=== PATIENT | female | born 1990 | race Two or more races ===

== ENCOUNTER 2023-04-14 01:10 | Observation (INO) | payer OTHER ==
[~2023-04-14] VITALS: Ht 165.1 cm; Wt 72.0 kg
[2023-04-14 01:41] LABS: Basophils # (auto) 0.1 10 ^3/uL (0-0.2); Basophils % (auto) 0.3 % (0.0-2.0); Eosinophils # (auto) 0.1 10 ^3/uL (0-0.8); Eosinophils % (auto) 0.7 % (0.0-7.0); Hematocrit 37.4 % (36.0-46.0); Hemoglobin 12.6 g/dL (12.2-16.2); Lymphocytes # (auto) 3.3 10 ^3/uL (0.4-5.4); Lymphocytes % (auto) 20.1 % (10.0-50.0); Mean Corpuscular Hemoglobin 30.7 pg (28.0-32.0); Mean Corpuscular Hgb Conc. 33.6 g/dL (32.0-36.0); Mean Corpuscular Volume 91.5 fL (80.0-100.0); Monocytes # (auto) 1.2 10 ^3/uL (0-1.3); Monocytes % (auto) 7.6 % (0.0-12.0); Neutrophils # (auto) 11.6 10 ^3/uL (1.6-8.6); Neutrophils % (auto) 71.3 % (37.0-80.0); Red Blood Cells 4.09 10^6/uL (4.0-5.20); Red Cell Distribution Width 13.1 % (11.8-14.3); White Blood Cell 16.2 10^3/uL (4.4-10.8)
[2023-04-14 01:58] LABS: Alanine Aminotransferase 20 U/L (7-40); Albumin 3.7 g/dL (3.2-4.8); Alkaline Phosphatase 92 U/L (46-116); Anion Gap 10 (5-15); Aspartate Aminotransferase 20 U/L (13-40); BUN/Creatinine Ratio 16.7 (10.0-20.0); Bilirubin, Total 0.5 mg/dL (0.2-1.0); Blood Urea Nitrogen 11 mg/dL (9-23); Calcium 8.9 mg/dL (8.7-10.4); Carbon Dioxide 22 mmol/L (20-30); Chloride 105 mmol/L (98-107); Glucose 88 mg/dL (74-106); Potassium 3.6 mmol/L (3.5-5.1); Sodium 137 mmol/L (136-145); Total Protein 6.1 g/dL (5.7-8.2)
[2023-04-14 03:59] VITALS: PULSE 85
[2023-04-14] MEDS ORDERED: TERBUTALINE SULFATE 1 MG/ML 1ML VIAL SC ONE (05:19)
[2023-04-14] MEDS: TERBUTALINE SULFATE 1 MG/ML 1ML VIAL SC SCH ×3 (05:24→05:43)
[2023-04-14 06:29] VITALS: BP 117/65; RESP 17; O2SAT 98
[2023-04-14 06:30] LABS: Urine Bacteria FEW /hpf (None Seen); Urine Blood Negative /uL (Negative); Urine Clarity HAZY (Clear); Urine Color Yellow (Yellow); Urine Mucus FEW (None Seen); Urine Protein, UAD TRACE (Negative); Urine Specific Gravity 1.019 (1.001-1.035); Urine Urobilinogen Normal (Negative); Urine WBC 29 /hpf (0 - 5)
[2023-04-14] MEDS ORDERED: PREN-129 OR (07:04)
[2023-04-14] MEDS ORDERED: NIF10C PO (07:04)
[2023-04-14] MEDS ORDERED: NITR-87 PO (07:05)
== END 2023-04-14 07:27 | disposition home or self-care (01) ==
LOC: ER 01:10 → EEVIPCON 01:10 → LDRP 05:42
PROVIDERS: ADMIT Obstetrics & Gynecology; ATTEND Obstetrics & Gynecology
DX: O60.03 Preterm labor without delivery, third trimester (principal); O9A.213 Injury, poisoning and certain other consequences of external causes complicating pregnancy, third trimester; S06.0XAA Concussion with loss of consciousness status unknown, initial encounter; O26.893 Other specified pregnancy related conditions, third trimester; R55 Syncope and collapse; R42 Dizziness and giddiness; W19.XXXA Unspecified fall, initial encounter; Y93.01 Activity, walking, marching and hiking; Y92.89 Other specified places as the place of occurrence of the external cause; Y99.8 Other external cause status
CPT/HCPCS: 36415; 59025; 70450; 76805; 76818; 80053; 81001; 81002; 83880; 84484; 84702; 85025; 93005; 94760; 96360; 96361; 96372; 99285; G0378; J3105

== ENCOUNTER 2023-05-20 14:00 | Observation (INO) | payer OTHER ==
[~2023-05-20] VITALS: Ht 165.1 cm; Wt 78.5 kg
[~2023-05-20 14:00] MED LIST: NIF10C PO; NITR-87 PO; PREN-129 OR
== END 2023-05-20 15:27 | disposition home or self-care (01) ==
LOC: LDRP 14:00
PROVIDERS: ADMIT Obstetrics & Gynecology; ATTEND Obstetrics & Gynecology
DX: O48.0 Post-term pregnancy (principal); Z3A.40 40 weeks gestation of pregnancy
CPT/HCPCS: 59025; 76818; 81002; 94760; G0378

== ENCOUNTER 2023-05-22 05:06 | Observation (INO) | payer OTHER ==
[~2023-05-22] VITALS: Ht 165.1 cm; Wt 78.5 kg
[2023-05-22] MEDS ORDERED: LACT. RINGERS/OXYTOCIN 20UNITS 1,000 ML IV SCH (16:45)
[2023-05-22] MEDS ORDERED: SODIUM CHLORIDE 0.9% 1,000 ML IV ONE (17:30)
== END 2023-05-22 18:41 | disposition home or self-care (01) ==
LOC: UNDOADMOB 05:06 → LDRP 05:06
PROVIDERS: ADMIT Obstetrics & Gynecology; ATTEND Obstetrics & Gynecology
DX: O48.0 Post-term pregnancy (principal); O47.9 False labor, unspecified; O26.893 Other specified pregnancy related conditions, third trimester; R10.9 Unspecified abdominal pain; Z3A.40 40 weeks gestation of pregnancy
CPT/HCPCS: 59025; 76818; 81002; 94760; 96360; 96361; G0378; J2590; J7030

== ENCOUNTER 2023-05-24 10:00 | Observation (INO) | payer OTHER ==
[~2023-05-24] VITALS: Ht 165.1 cm; Wt 78.9 kg
== END 2023-05-24 11:41 | disposition home or self-care (01) ==
LOC: LDRP 10:00 → UNDOADMOB 10:00 → LDRP 10:16 → UNDODISOB 11:41
PROVIDERS: ADMIT Obstetrics & Gynecology; ATTEND Obstetrics & Gynecology
DX: O48.0 Post-term pregnancy (principal); Z3A.40 40 weeks gestation of pregnancy
CPT/HCPCS: 76818; G0378; 59025; 81002; 94760

== ENCOUNTER 2023-05-24 18:19 | Inpatient (IN) | payer OTHER ==
[~2023-05-24] VITALS: Ht 165.1 cm; Wt 78.9 kg
[2023-05-24 11:05] LABS: Basophils # (auto) 0 10 ^3/uL (0-0.2); Basophils % (auto) 0.3 % (0.0-2.0); Eosinophils # (auto) 0.1 10 ^3/uL (0-0.8); Eosinophils % (auto) 0.7 % (0.0-7.0); Hematocrit 39.3 % (36.0-46.0); Hemoglobin 13.2 g/dL (12.2-16.2); Lymphocytes # (auto) 2.5 10 ^3/uL (0.4-5.4); Mean Corpuscular Hemoglobin 30.7 pg (28.0-32.0); Mean Corpuscular Hgb Conc. 33.7 g/dL (32.0-36.0); Mean Corpuscular Volume 91.2 fL (80.0-100.0); Monocytes # (auto) 0.9 10 ^3/uL (0-1.3); Monocytes % (auto) 7.6 % (0.0-12.0); Neutrophils # (auto) 8.3 10 ^3/uL (1.6-8.6); Neutrophils % (auto) 70.4 % (37.0-80.0); Red Blood Cells 4.31 10^6/uL (4.0-5.20); White Blood Cell 11.7 10^3/uL (4.4-10.8)
[2023-05-24 11:23] LABS: INR 0.95 (0.9-1.15); Partial Thromboplastin Time 27.6 SEC (24.5-34.5)
[2023-05-24 11:33] LABS: Alanine Aminotransferase 14 U/L (7-40); Alkaline Phosphatase 127 U/L (46-116); Anion Gap 6 (5-15); Aspartate Aminotransferase 22 U/L (13-40); BUN/Creatinine Ratio 8.7 (10.0-20.0); Bilirubin, Total 0.7 mg/dL (0.2-1.0); Blood Urea Nitrogen 6 mg/dL (9-23); Calcium 9.6 mg/dL (8.5-10.1); Carbon Dioxide 26 mmol/L (20-30); Chloride 105 mmol/L (98-107); Glucose 66 mg/dL (74-106); Potassium 3.9 mmol/L (3.5-5.1); Sodium 137 mmol/L (136-145); Total Protein 6.4 g/dL (5.7-8.2)
[2023-05-24 11:42] LABS: Amphetamine Screen, Urine Neg (NEGATIVE); Barbiturate Scree,Urine Neg (NEGATIVE); Benzodiazephine Screen, Urine Neg (NEGATIVE); Cannabinoid Screen, Urine Neg (NEGATIVE); Cocaine Screen, Urine Neg (NEGATIVE); Opiate Scree,Urine Neg (NEGATIVE); Phencyclidine Screen, Urine Neg (NEGATIVE)
[2023-05-24 11:43] LABS: Urine Bacteria NONE SEEN /hpf (None Seen); Urine Blood Negative /uL (Negative); Urine Clarity Clear (Clear); Urine Color Colorless (Yellow); Urine Protein, UAD Negative (Negative); Urine Specific Gravity 1.006 (1.001-1.035); Urine Urobilinogen Normal (Negative); Urine WBC 1 /hpf (0 - 5); Urine pH 7.5 (5.0-8.0)
[2023-05-24] MEDS ORDERED: PROMETHAZINE HCL 25 MG/ML 1ML IM PRN (18:30)
[2023-05-24] MEDS ORDERED: LIDOCAINE 2%HCL (LOCAL ANESTH.) INJ 20ML MDV IJ PRN (18:30)
[2023-05-24] MEDS ORDERED: LACTATED RINGER'S 1,000 ML IV SCH (18:30)
[2023-05-24] MEDS ORDERED: BUTORPHANOL TARTRATE 2 MG/1 ML VIAL IV PRN ×2 (18:30)
[2023-05-24] MEDS: miSOPROStol 50 MCG per PRE-CUT 1/2 TAB PO PRN (21:22)
[2023-05-25 07:06] LABS: RPR Non Reactive (Non Reactive)
[2023-05-25] MEDS ORDERED: NALOXONE HCL 0.4 MG/ML VIAL IV ONE (07:30)
[2023-05-25] MEDS ORDERED: LACTATED RINGER'S 1,000 ML IV ONE (07:30)
[2023-05-25] MEDS ORDERED: ROPIVACAINE 0.5% (5MG/ML) 20ML AMPULE IJ ONE (07:30)
[2023-05-25] MEDS: PENICILLIN G POT 5MIL/D5 50ML 50 ML IV ONE (07:44)
[2023-05-25] MEDS: DERMOPLAST 60ML BOTTLE TOP PRN (08:01)
[2023-05-25] MEDS: WITCH HAZEL-GLYCERIN PAD TOP PRN (08:02)
[2023-05-25] MEDS: PHISODERM TOP SOLN 240ML BTL TOP PRN (08:02)
[2023-05-25] MEDS: LACT. RINGERS/OXYTOCIN 20UNITS 1,000 ML IV SCH (08:39)
[2023-05-25] MEDS: ROPIVACAINE HCL 200 ML ONE (09:58)
[2023-05-25] MEDS: ePHEDrine SULFATE 50 MG/ML AMP IV ONE (11:05)
[2023-05-25] MEDS: PENICILLIN G POTASSIUM 2,500,000 UNITS in D5W 5% 50 ML IV SCH (11:43)
[2023-05-25] MEDS: METHYLERGONOVINE MALEATE 0.2 MG/ML AMP IM ONE (12:42)
[2023-05-25] MEDS ORDERED: METHYLERGONOVINE MALEATE 0.2 MG/ML AMP IM PRN (12:45)
[2023-05-25] MEDS ORDERED: ONDANSETRON ODT 4 MG TAB PO PRN (13:00)
[2023-05-25] MEDS: LACT. RINGERS/OXYTOCIN 20UNITS 500 ML IV ONE ×2 (13:05→13:06)
[2023-05-25] MEDS: IBUPROFEN 600 MG TAB PO PRN (14:19)
[2023-05-25 16:15] VITALS: BP 119/71; PULSE 97; RESP 18; TEMP 97.9; O2SAT 97
[2023-05-25 19:00] VITALS: BP 124/58; PULSE 85; RESP 18; TEMP 97.7; O2SAT 97
[2023-05-25] MEDS ORDERED: DOCUSATE SOD 100 MG CAP PO SCH (22:00)
[2023-05-25 23:10] VITALS: BP 121/60; PULSE 99; RESP 18; TEMP 97.9; O2SAT 97
[2023-05-26 02:50] VITALS: BP 115/60; PULSE 90; RESP 17; TEMP 98; O2SAT 98
[2023-05-26] MEDS: ACETAMINOPHEN 325 MG TAB PO PRN (02:53)
[2023-05-26 07:30] VITALS: BP 109/69; PULSE 72; RESP 16; TEMP 98.3; O2SAT 97
[2023-05-26 11:15] VITALS: BP 109/57; PULSE 68; RESP 16; TEMP 98.6; O2SAT 96
[2023-05-26 14:45] VITALS: BP 106/66; PULSE 85; RESP 18; TEMP 98; O2SAT 96
[2023-05-26 18:06] LABS: Treponema pallidum Ab (FTA-Ab) Non Reactive (Non Reactive)
== END 2023-05-26 14:45 | disposition home or self-care (01) | DRG 807 ==
LOC: LDRP 18:19
PROVIDERS: ADMIT Obstetrics & Gynecology; ATTEND Obstetrics & Gynecology
PROC: 10E0XZZ Delivery of Products of Conception, External Approach (ICD-10-PCS; principal; 2023-05-25)
PROC: 10907ZC Drainage of Amniotic Fluid, Therapeutic from Products of Conception, Via Natural or Artificial Opening (ICD-10-PCS; 2023-05-25)
PROC: 0KQM0ZZ Repair Perineum Muscle, Open Approach (ICD-10-PCS; 2023-05-25)
PROC: 3E0R3BZ Introduction of Anesthetic Agent into Spinal Canal, Percutaneous Approach (ICD-10-PCS; 2023-05-25)
PROC: 00HU33Z Insertion of Infusion Device into Spinal Canal, Percutaneous Approach (ICD-10-PCS; 2023-05-25)
DX: O48.0 Post-term pregnancy (principal); Z37.0 Single live birth; O99.824 Streptococcus B carrier state complicating childbirth; O40.3XX0 Polyhydramnios, third trimester, not applicable or unspecified; O32.0XX0 Maternal care for unstable lie, not applicable or unspecified; O70.1 Second degree perineal laceration during delivery; Z3A.40 40 weeks gestation of pregnancy; Z80.49 Family history of malignant neoplasm of other genital organs
CPT/HCPCS: 36415; 59409; 62282; 76815; 80053; 80307; 81001; 85025; 85610; 85730; 86592; 86703; 86850; 86900; 86901; 87340; 94760; 94762; 96360; 96361; 96372; G0378; J2540; J2590; J7060